=== PATIENT | female | born 1960 | race Caucasian/White ===

== ENCOUNTER 2017-12-07 09:17 | Emergency (ER) | payer OTHER ==
[2017-12-07] MEDS ORDERED: PROP10TA58 PO (09:22)
[2017-12-07] MEDS ORDERED: HYDR-2966 PO (09:22)
[2017-12-07] MEDS ORDERED: MELO-205 PO (09:22)
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
[2017-12-07] MEDS ORDERED: DIPHTH/TETANUS/ACEL. PERTUSSIS IM ONE (09:25)
[2017-12-07] MEDS ORDERED: TETRACAIN/EPI/LIDO GEL 3ML SYR TP ONE (09:25)
[2017-12-07 09:39] LABS: PLATELET COUNT, AUTOMATED 214 K/uL (150-450)
--- NOTE | 2017-12-07 09:46 | EKG ---
FACILITY: [facility] [place] PATIENT NAME: ALEXANDRIA MARIN : [id number] MR: [id number] V: [id number] EXAM DATE: ORDERING PHYSICIAN: SHIN HOU TECHNOLOGIST: BOO Test Reason : TRAUMA Blood Pressure : / mmHG Vent. Rate : 076 BPM Atrial Rate : 076 BPM P-R Int : 150 ms QRS Dur : 084 ms QT Int : 400 ms P-R-T Axes : 024 033 031 degrees QTc Int : 450 ms Normal sinus rhythm Normal ECG No previous ECGs available Confirmed by LIZETTE SHEPPARD ([id number]) on 12/09/2017 1:44:37 PM Referred By: AMEYA Confirmed By:LIZETTE SHEPPARD
--- NOTE | 2017-12-07 09:57 | RADIOLOGY IMAGING REPORT ---
FACILITY: [facility] [place] PATIENT NAME: An Joya : 1960 MR: [id number] V: [id number] EXAM DATE: ORDERING PHYSICIAN: SHIN HOU TECHNOLOGIST: Location: [facility] [place] Patient: An Joya : 1960 Visit/Account:[id number] Date of Sevice: 12/07/2017 HEAD W/O CONTRAST Provided history: TRAUMA Additional pertinent history: none TECHNIQUE: Imaging was obtained from the skull base through the vertex without intravenous contrast. Source images were reformatted in the coronal sagittal planes. One of the following dose optimization techniques was utilized in the performance of this exam: Autom ated exposure control; adjustment of the mA and/or kV according to the patient's size; or use of an i terative reconstruction technique. Specific details can be referenced in the facility's radiology CT exam operational policy. COMPARISON STUDIES: None FINDINGS: Brain volume: Normal Acute cortical ischemia: None Chronic cortical and ganglionic ischemia: none significant Hemorrhage: None Masses / edema: None White matter: Normal Vessels: Normal Extra-axial: None significant Calvarium / scalp: There is a small hyperdense deep subcutaneous space hematoma over the high right frontoparietal junction as well as several punctate foci of gas from an open injury. The underlying c alvarium is normal. Skull base: negative Visualized sinuses / orbits: negative IMPRESSION: 1. No evidence of intracranial hemorrhage, mass or acute ischemia. 2. Scalp injury over the high right frontoparietal junction without subjacent calvarial fracture. Report Dictated By: Aaron Alcala MD at 12/07/2017 9:51 AM Report E-Signed By: Aaron Alcala MD at 12/07/2017 9:53 AM WSN:[email or web address]
[2017-12-07 11:00] VITALS: BP 126/88
== END 2017-12-07 11:10 | disposition home or self-care (01) ==
LOC: ER 09:18
DX: S01.01XA Laceration without foreign body of scalp, initial encounter (principal); I10 Essential (primary) hypertension
CPT/HCPCS: 70450; 81001; 82040; 82247; 82310; 82374; 82435; 82565; 82947; 84075; 84132; 84155; 84295; 84450; 84460; 84520; 85025; 90471; 90715; 93005; 99283